=== PATIENT | female | born 1975 | race African-American/Black ===

== ENCOUNTER 2021-10-08 23:11 | Emergency (ER) | payer MEDICAID ==
[~2021-10-08] VITALS: Ht 157.5 cm; Wt 120.0 kg
[~2021-10-08 23:11] MED LIST: DIVA250T4; QUET100T
[2021-10-08 23:19] VITALS: BP 104/62
[2021-10-09] MEDS ORDERED: ACETAMINOPHEN 325MG TABLET PO ONE
[2021-10-09] MEDS ORDERED: TOPUD MT (01:42)
== END 2021-10-09 02:27 | disposition home or self-care (01) ==
LOC: ER 23:11
DX: M25.562 Pain in left knee (principal); M25.572 Pain in left ankle and joints of left foot; Z91.81 History of falling; E11.9 Type 2 diabetes mellitus without complications; I10 Essential (primary) hypertension; Z87.81 Personal history of (healed) traumatic fracture
CPT/HCPCS: 73562; 73610; 99284